=== PATIENT | female | born 1945 | race Hispanic/Latino ===

== ENCOUNTER 2016-10-16 06:27 | Day surgery (SDC) | payer MEDICARE, OTHER ==
[2016-03-28 10:09] VITALS: BMI 32.1
[2016-10-16] MEDS ORDERED: Iodixanol 320 MG/ML 200 ML BOTTLE IV ONE (06:44)
[2016-10-16] MEDS ORDERED: Iodixanol 320 MG/ML 100 ML BOTTLE IV ONE (06:44)
[2016-10-16] MEDS ORDERED: Nitroglycerin 50mg in D5W 0 MG/0 ML BOTTLE IV ONE (06:44)
[2016-10-16] MEDS ORDERED: Iohexol 350mgl/ml 50 ML ONE (06:44)
[2016-10-16] MEDS ORDERED: Phenylephrine 10 mg/ml Inj ONE (06:44)
[2016-10-16] MEDS ORDERED: Lidocaine 2% Inj (20ml) ONE (06:44)
[2016-10-16] MEDS ORDERED: Midazolam 2 MG/2 ML VIAL ONE ×2 (07:21→07:46)
[2016-10-16 07:24] LABS: BASO # 0.01 K/mm3 (0.0-2.0); BASO % 0.2 % (0.0-3.0); EOS # 0.1 (0.0-0.7); EOS % 1.7 % (1.5-5.0); GRAN # 4.34 (1.4-6.5); GRAN % 66.2 % (50.0-68.0); HEMOGLOBIN 13.4 gm/dL (12.0-16.0); LYMPH # 1.5 (1.2-3.4); LYMPH % 23.5 % (22.0-35.0); MEAN CELL VOLUME 92.6 fL (80.0-105.0); MEAN CORPUSCULAR HEMOGLOBIN 31.1 pg (25.0-35.0); MEAN CORPUSCULAR HGB CONC 33.6 g/dl (31.0-37.0); MEAN PLATELET VOLUME 11.8 fl (7.0-11.0); MONO # 0.6 (0.1-0.6); MONO % 8.4 % (1.0-6.0); PLATELET COUNT 202 10^3/uL (120.0-450.0); RBC 4.31 10^6/uL (3.5-6.1); RED CELL DISTRIBUTION WIDTH 13.9 % (11.5-14.5); WHITE BLOOD COUNT 6.6 10^3/ul (4.5-11.0)
[2016-10-16 07:33] LABS: INR 0.97 (0.93-1.08); PARTIAL THROMBOPLASTIN TIME 25.8 Seconds (23.7-30.8); PROTHROMBIN TIME 10.5 Seconds (9.9-11.8)
[2016-10-16 07:41] LABS: BLOOD UREA NITROGEN 23 mg/dL (7-21); CALCIUM 9.4 mg/dL (8.4-10.5); GFR AFRICAN-AMERICAN > 60; GFR NON-AFRICAN AMERICAN > 60; HDL CHOLESTEROL 58 mg/dL (29-60)
[2016-10-16 07:51] LABS: LDL CHOLESTEROL 77 mg/dL (0-129)
[2016-10-16 08:45] VITALS: RESP 18
[2016-10-16] MEDS ORDERED: Sodium Chloride 0.9% 1,000 ML IV SCH (08:45)
[2016-10-16 10:17] VITALS: TEMP 97.5
[2016-10-16 10:18] VITALS: O2SAT 96
[2016-10-16 14:11] VITALS: BP 133/71; PULSE 50
--- NOTE | 2016-10-16 22:34 | CARDCATH ---
PROCEDURE DATE: 10/16/2016 HISTORY: The patient is a 70-year-old woman who presents with chest pain. Her cardiac risk factors include hypertension, hypercholesterolemia and recurrent palpitations. The patient's stress test revealed an ischemic area in the apical region. Cardiac catheterization was recommended. PROCEDURE: Left heart catheterization with coronary angiography and left ventriculogram. The right femoral artery was cannulated with a 6-Peruvian sheath. There were no complications. The findings on catheterization revealed a left ventricle that contracted normally. Estimated ejection fraction of 60%. Her coronary anatomy revealed a right dominant circulation. The RCA revealed mild intimal irregularities with a 50% stenosis in the distal PDA. The left main artery was unremarkable. The LAD and diagonal vessels were free of significant disease. The circumflex artery and the obtuse marginal branches were unremarkable. Angio-Seal was used to close the femoral artery site. The patient tolerated the procedure well. In summary, the procedure revealed normal LV function. Diffuse atherosclerosis in the RCA with a 50% stenosis in the distal PDA. Given these findings, the patient's treatment should be a strict cardiac risk reduction program. I have discussed this with the patient and we will enroll her in the cardiac rehab program. The patient needs to be on a baby aspirin daily as well as statin therapy. Aaron Pacheco MD
--- NOTE | 2016-10-16 23:23 | CARD ---
APPROVED REPORT EKG Measurement Heart [id number] <Conclusion> Sinus bradycardia Minimal voltage criteria for LVH, may be normal variant Borderline ECG
== END 2016-10-16 14:15 | disposition home or self-care (01) ==
LOC: CATH 06:27
PROVIDERS: ATTEND Internal Medicine Cardiovascular Disease
DX: I25.10 Atherosclerotic heart disease of native coronary artery without angina pectoris (principal); I10 Essential (primary) hypertension; E78.00 Pure hypercholesterolemia, unspecified
CPT/HCPCS: 36415; 80048; 80061; 85025; 85610; 85730; 86850; 86900; 93005; 93458; 99152; C1760; C1769; C2629; J1644; J2250; J3010; J7040 ×2

== ENCOUNTER 2018-07-14 02:40 | Emergency (ER) | payer MEDICARE, OTHER ==
[2018-07-14 02:50] VITALS: BMI 29.6
[2018-07-14 02:55] VITALS: RESP 18; TEMP 97.9
--- NOTE | 2018-07-14 02:56 | ED PDOC ---
Arrival/HPI - General Historian: Patient - History of Present Illness Narrative History of Present Illness (Text): Patient is a 72 year old female with history of hypertension, hyperlipidemia, paroxysmal SVT, obesity, COPD, anxiety presenting with chief complaint of palpitations that work her up out of sleep. Patient states she took some xanax and went back to sleep however woke up again with palpitations and had a small amount of diarrhea. Also admits to some nausea and indigestion which has resolved. She did try new foods today. Patient has history of palpitations for which workup has been unremarkable. She was recently at [facility] a few days ago. Denies recent illnesses, sick contacts, recent travel. Denies fevers, chills, chest pain, shortness of breath, abdominal pain, dysuria. Time/Duration: Prior to Arrival Symptom Onset: Sudden Symptom Course: Resolved Activities at Onset: Sleeping <Judy Cunningham - Last Filed: 07/14/18 05:43> <Abhay Castro - Last Filed: 07/14/18 19:07> - General Chief Complaint: Palpitations Past Medical History - Provider Review Nursing Documentation Reviewed: Yes - Infectious Disease Hx of Infectious Diseases: None - Cardiac Hx Pacemaker: No - Pulmonary Hx Chronic Obstructive Pulmonary Disease (COPD): Yes - Neurological Hx Paralysis: No - HEENT Hx HEENT Disorder: Yes (sinusitis) Hx Cataracts: Yes (b/l sx) - Renal Hx Renal Disorder: Yes (pelvic cysts) - Endocrine/Metabolic Hx Endocrine Disorders: Yes (HAS A NODULE IN HER THYROID. BENIGN) - Hematological/Oncological Hx Blood Transfusions: No Hx Blood Transfusion Reaction: No - Integumentary Hx Dermatological Disorder: Yes Other/Comment: ble discoloration - Musculoskeletal/Rheumatological Hx Musculoskeletal Disorders: Yes (KNEES) - Gastrointestinal Hx Gastrointestinal Disorders: Yes (obese, hiatal hernia, fatty liver) Hx Gastroesophageal Reflux: Yes - Genitourinary/Gynecological Hx Genitourinary Disorders: Yes Other/Comment: breast glandular densities - Psychiatric Hx Emotional Abuse: No Hx Physical Abuse: No Hx Substance Use: No - Surgical History Other/Comment: r paratracheal lymphadenopathy benign DX DYSPHAGIA - Anesthesia Hx Anesthesia Reactions: No Hx Malignant Hyperthermia: No - Suicidal Assessment Feels Threatened In Home Enviroment: No <Judy Cunningham - Last Filed: 07/14/18 05:43> Family/Social History - Physician Review Nursing Documentation Reviewed: Yes Family/Social History: No Known Family HX Smoking Status: Never Smoked Hx Alcohol Use: No Hx Substance Use: No <Judy Cunningham - Last Filed: 07/14/18 05:43> Allergies/Home Meds <Judy Cunningham - Last Filed: 07/14/18 05:43> <Abhay Castro - Last Filed: 07/14/18 19:07> Allergies/Adverse Reactions: Allergies levofloxacin [From Levaquin] Adverse Reaction (Intermediate, Verified 07/14/18 02:52) JITTERY,CANNOT SLEEP Home Medications: Home Meds Medication Instructions Recorded Confirmed Rosuvastatin Calcium [Crestor] 10 mg PO QAM 05/25/15 07/14/18 ALPRAZolam [Xanax] 0.25 mg PO PRN PRN 01/29/16 07/14/18 Aspirin [Ecotrin] 81 mg PO QOTHERDAY 02/21/16 07/14/18 Cholecalciferol [Vitamin D 1000 IU] 2,000 iu PO QAM 03/28/16 07/14/18 Metoprolol Tartrate [Lopressor] 12.5 mg PO QPM 03/28/16 07/14/18 Potassium Chloride [K-Dur 20 mEq 20 meq PO QAM 03/28/16 07/14/18 ER Tab] Magnesium Oxide [Magnesium] 400 mg PO DAILY 10/12/16 07/14/18 Multivitamin [Daily Mendel] 1 tab PO DAILY 10/12/16 07/14/18 Ubidecarenone [Coq-10] 100 mg PO DAILY 10/12/16 07/14/18 Fluticasone/Vilanterol 100/25 1 puff INH PRN PRN 07/14/18 07/14/18 [Breo Ellipta 100-25 MCG INH] Olmesartan/Hydrochlorothiazide 1 tab PO DAILY 07/14/18 07/14/18 [Olmesartan-Hctz 40-25 mg Tab] Review of Systems - Physician Review All systems were reviewed & negative as marked: Yes - Review of Systems Respiratory: Normal Cardiovascular: Palpitations. absent: Chest Pain, Syncope Gastrointestinal: Diarrhea. absent: Abdominal Pain Genitourinary Female: Normal <Judy Cunningham - Last Filed: 07/14/18 05:43> Physical Exam Vital Signs Reviewed: Yes Temperature: Afebrile Blood Pressure: Normal Pulse: Regular Respiratory Rate: Normal Appearance: Positive for: Well-Appearing, Comfortable Pain Distress: None Mental Status: Positive for: Alert and Oriented X 3 - Systems Exam Head: Present: Atraumatic, Normocephalic Pupils: Present: PERRL Extroacular Muscles: Present: EOMI Conjunctiva: Present: Normal Mouth: Present: Moist Mucous Membranes Respiratory/Chest: Present: Clear to Auscultation, Good Air Exchange. No: Respiratory Distress, Accessory Muscle Use Cardiovascular: Present: Regular Rate and Rhythm, Normal S1, S2. No: Murmurs Abdomen: Present: Normal Bowel Sounds. No: Tenderness, Distention Lower Extremity: Present: Normal Inspection. No: Edema Neurological: Present: GCS=15, CN II-XII Intact, Speech Normal Skin: Present: Warm, Dry, Normal Color Psychiatric: Present: Alert, Oriented x 3 <Judy Cunningham - Last Filed: 07/14/18 05:43> Vital Signs Temp Pulse Resp BP Pulse Ox 07/14/18 02:55 97.9 F 63 18 132/90 95 <Abhay Castro - Last Filed: 07/14/18 19:07> Medical Decision Making ED Course and Treatment: Impression: 72 year old female with palpitations Plan: - CBC, CMP - EKG, troponin - CXR - 1 L NS bolus - Reassess and disposition Prior Visits: Notes and results from previous visits were reviewed. Progress Notes: Labs and imaging reviewed. Patient is resting comfortably, hemodynamically stable. Patient in agreement with discharge plan. - Lab Interpretations I have reviewed the lab results: Yes - EKG Interpretation EKG Interpretation (Text): 07/14/18 03:19 Sinus bradycardia Interpreted by ED Physician: Yes Type: 12 lead EKG <Judy Cunningham - Last Filed: 07/14/18 05:43> ED Course and Treatment: Impression: Pt seen and evaluated with electromedical service engineer. Aware and agree with HPI, clinical findings, plan, and management. Pt, whose past medical history includes hypertension, hyperlipidemia, paroxysmal SVT, obesity, COPD, and anxiety, presented for palpitations. Plan: -- EKG -- CXR -- Labs, troponin -- IV fluids -- Reassess and disposition Prior Visits: Notes and results from previous visits were reviewed. Progress Notes: - Lab Interpretations Lab Results: Troponin I < 0.01 ng/mL 07/14/18 03:23 Total Bilirubin 0.3 mg/dL (0.2-1.3) 07/14/18 03:23 AST 22 U/L (14-36) 07/14/18 03:23 ALT 10 U/L (7-56) 07/14/18 03:23 Alkaline Phosphatase 76 U/L (38-126) 07/14/18 03:23 Total Protein 6.6 g/dL (5.8-8.3) 07/14/18 03:23 Albumin 3.7 g/dL (3.0-4.8) 07/14/18 03:23 Globulin 2.8 gm/dL 07/14/18 03:23 Albumin/Globulin Ratio 1.3 (1.1-1.8) 07/14/18 03:23 - RAD Interpretation Radiology Orders: 07/14/18 03:09 CHEST PORTABLE [RAD] Stat - Medication Orders Current Medication Orders: Discontinued Medications Sodium Chloride (Sodium Chloride 0.9%) 1,000 mls @ 999 mls/hr IV .Q1H1M STA Stop: 07/14/18 04:10 Last Admin: 07/14/18 03:22 Dose: 999 mls/hr eMAR Start Stop Document 07/14/18 03:22 AD (Rec: 07/14/18 03:22 AD [id number] Intravenous Solution Start Date 07/14/18 Start Time 03:22 Potassium Chloride (K-Dur 20 Meq Er Tab) 40 meq PO STAT STA Stop: 07/14/18 04:13 Last Admin: 07/14/18 04:25 Dose: 40 meq <Abhay Castro - Last Filed: 07/14/18 19:07> - PA / AMBULATORY ANALYST / Resident Statement RUFINA has reviewed & agrees with the documentation as recorded. RUFINA has examined the patient and agrees with the treatment plan. <Abhay Castro - Last Filed: 07/14/18 19:07> Disposition/Present on Arrival - Present on Arrival Any Indicators Present on Arrival: No History of DVT/PE: No History of Uncontrolled Diabetes: No Urinary Catheter: No History Surgical Site Infection Following: None - Disposition Have Diagnosis and Disposition been Completed?: Yes Disposition Time: 04:56 Patient Plan: Discharge <Alejandra Cunninghamulises Boggs - Last Filed: 07/14/18 05:43> <Abhay Castro - Last Filed: 07/14/18 19:07> - Disposition Diagnosis: Palpitations Disposition: HOME/ ROUTINE Condition: STABLE Discharge Instructions (ExitCare): Palpitations (DC) Additional Instructions: Follow up with your primary medical doctor within 3-5 days. Resume your home medications as prescribed. Return to ED if symptoms return or worsen. Referrals: Yamil Pace MD [Family Provider] - Follow up with primary Forms: [employer] (Yakut)
[2018-07-14] MEDS ORDERED: Sodium Chloride 0.9% 1,000 ML IV STA (03:10)
[2018-07-14 04:00] LABS: ALB/GLOB RATIO 1.3 (1.1-1.8); ALBUMIN 3.7 g/dL (3.0-4.8); ALT/SGPT 10 U/L (7-56); AST/SGOT 22 U/L (14-36); BLOOD UREA NITROGEN 29 mg/dL (7-21); CALCIUM 9.1 mg/dL (8.4-10.5); GFR NON-AFRICAN AMERICAN > 60
[2018-07-14 04:11] LABS: TROPONIN I < 0.01 ng/mL
[2018-07-14] MEDS ORDERED: Potassium Chloride 20 mEq ER Tab PO STA (04:12)
[2018-07-14 04:32] LABS: BASO # 0.01 K/mm3 (0.0-2.0); BASO % 0.1 % (0.0-3.0); EOS # 0.2 (0.0-0.7); EOS % 2.1 % (1.5-5.0); HEMOGLOBIN 12.9 g/dL (12.0-16.0); LYMPH # 1.7 (1.2-3.4); LYMPH % 24.1 % (22.0-35.0); MEAN CELL VOLUME 92.6 fl (80.0-105.0); MEAN CORPUSCULAR HEMOGLOBIN 29.8 pg (25.0-35.0); MEAN CORPUSCULAR HGB CONC 32.2 g/dl (31.0-37.0); MEAN PLATELET VOLUME 11.8 fl (7.0-11.0); MONO # 0.4 (0.1-0.6); MONO % 5.1 % (1.0-6.0); RBC 4.33 10^6/uL (3.5-6.1); RED CELL DISTRIBUTION WIDTH 13.5 % (11.5-14.5)
[2018-07-14 05:21] VITALS: BP 130/62; PULSE 59; O2SAT 100
--- NOTE | 2018-07-14 14:58 | RAD ---
Date of service: 07/14/2018 HISTORY: CP COMPARISON: Comparison chest 12/06/2017 TECHNIQUE: 1 view obtained. FINDINGS: LUNGS: No active pulmonary disease. PLEURA: No significant pleural effusion identified, no pneumothorax apparent. CARDIOVASCULAR: No aortic atherosclerotic calcification present. Normal cardiac size. No pulmonary vascular congestion. OSSEOUS STRUCTURES: No significant abnormalities. VISUALIZED UPPER ABDOMEN: Normal. OTHER FINDINGS: None. IMPRESSION: No active disease.
--- NOTE | 2018-07-15 07:17 | CARD ---
APPROVED REPORT Date of service: 07/14/2018 EKG Measurement Heart [id number] <Conclusion> Sinus bradycardia Otherwise normal ECG
== END 2018-07-14 05:00 | disposition home or self-care (01) ==
LOC: ED 02:40
DX: R00.2 Palpitations (principal); I10 Essential (primary) hypertension; I47.1 Supraventricular tachycardia; J44.9 Chronic obstructive pulmonary disease, unspecified; E78.5 Hyperlipidemia, unspecified; F41.9 Anxiety disorder, unspecified; E66.9 Obesity, unspecified
CPT/HCPCS: 71045; 80053; 83735; 84100; 84484; 85025; 93005; 99284; J7030